=== PATIENT | male | born 1965 | race Caucasian/White ===

== ENCOUNTER 2020-06-13 13:27 | Emergency (ER) | payer OTHER, SELFPAY ==
[2020-06-13] VITALS (7 sets, daily range): BP systolic 109–167; BP diastolic 62–84; PULSE 64–88; RESP 18; TEMP 36.3–36.6; O2SAT 96–100; BMI 32.5
--- NOTE | 2020-06-13 13:43 | ECG_ITS ---
Test Reason : HEART PALP Blood Pressure : / mmHG Vent. Rate : 075 BPM Atrial Rate : 075 BPM P-R Int : 168 ms QRS Dur : 098 ms QT Int : 370 ms P-R-T Axes : 058 032 049 degrees QTc Int : 413 ms Sinus rhythm with Premature atrial complexes Otherwise normal ECG When compared with ECG of 17-OCT-2018 07:32, Premature atrial complexes are now Present Referred By: Oz Rivas Electronically Signed By:VIANCA CALDWELL MD
--- NOTE | 2020-06-13 13:48 | XR_ITS ---
EXAMINATION: XR CHEST CLINICAL INFORMATION: Palpitations COMPARISON: None TECHNIQUE: 2 views of the chest were obtained. FINDINGS: No significant abnormality is noted involving the heart, lungs, mediastinum, bony thorax or soft tissues. XR/XR chest 2V IMPRESSION: Unremarkable chest examination.
--- NOTE | 2020-06-13 14:05 | ED.ARRPALP ---
HPI - Arrhythmia/Palpitations General Chief Complaint: Arrhythmia/Palpitations Stated Complaint: Tachycardia Time Seen by Provider: 06/13/20 13:35 Source: patient Mode of arrival: ambulatory Limitations: no limitations History of Present Illness HPI narrative: patient presents to the ED for resolved palpitations. Patient states he had an episode of his heart beating fast for about 20 minutes that resolved. Patient states on his smart watch heart rate was 120. Patient denies ever having chest pain, shortness of breath, coughing up blood, fever, chills, night sweats, or swelling of lower extremities. Patient denies any calf pain. Patient states no recent travel or surgery. Patient denies any throat pain. MD complaint: rapid heart beat Related Data Allergies Allergy/AdvReac Type Severity Reaction Status Date / Time ciprofloxacin [CIPROFLOXACIN] Allergy Mild HIVES Unverified 05/01/20 14:45 cephalexin [From KEFLEX] AdvReac Intermediate CHEST PAIN Unverified 05/01/20 14:45 Sulfa (Sulfonamide AdvReac Intermediate STOMACH Unverified 05/01/20 14:45 Antibiotics) UPSET [SULFA (SULFONAMIDE ANTIBIOTICS)] Review of Systems Review of Systems: Yes all other systems are reviewed and are negative Constitutional: Constitutional: Reports as per HPI and Reports no additional constitutional complaints Eyes: Eyes: Reports as per HPI and Reports no additional eye complaints ENT: Reports system reviewed and no additional complaints, except as documented, Reports as per HPI, Denies dysphagia, Denies dry mouth, Denies ear discharge, Denies otalgia, Denies facial pain, Denies hoarseness, Denies mouth lesions, Denies mouth pain, Denies nasal congestion, Denies nasal discharge, Denies nasal obstruction and Denies neck pain Cardiovascular: Cardiovascular: Reports as per HPI, Reports no additional cardiovascular complaints, Denies Abdominal Cramping after Meds, Denies chest pain, Denies chest pain at rest, Denies chest pain with activity, Reports rapid heart rate ( Resolved), Denies pedal edema, Denies edema, Denies dyspnea, Denies dyspnea on exertion, Denies orthopnea and Denies paroxysmal nocturnal dyspnea Respiratory: Respiratory: Reports as per HPI, Reports no additional respiratory complaints, Denies no additional respiratory complaints, Denies change in phlegm color, Denies chest congestion, Denies cough, Denies hemoptysis, Denies excessive phlegm production, Denies pain on inspiration, Denies pain with cough, Denies dyspnea, Denies dyspnea on exertion, Denies stridor and Denies wheezing Gastrointestinal: Gastrointestinal: Reports as per HPI, Reports no additional gastrointestinal complaints, Denies abdominal pain, Denies belching, Denies melena, Denies bloating, Denies hematochezia, Denies change in bowel habits, Denies tenesmus, Denies change in stool character, Denies coffee ground emesis, Denies constipation, Denies GI cramping, Denies dysphagia, Denies excessive flatus, Denies early satiety, Denies dyspepsia, Denies heartburn, Denies fecal incontinence, Denies diarrhea, Denies loose stools and Denies nausea Genitourinary: Genitourinary: Denies no additional male genitourinary complaints, Denies as per HPI, Denies hematospermia, Denies change in libido, Denies hematuria, Denies oliguria, Denies painful ejaculations, Denies penile discharge, Denies scrotal swelling, Denies testicular mass and Denies testicular pain Musculoskeletal: Musculoskeletal: Reports no additional musculoskeletal complaints, Reports as per HPI, Denies abnormal gait, Denies back pain, Denies myalgias, Denies atrophy, Denies limited range of motion, Denies loss of height, Denies muscle cramps, Denies muscle weakness and Denies neck pain Neurologic: Reports system reviewed and no additional complaints, except as documented, Reports as per HPI and Denies abnormal gait Psychiatric: Psychiatric: Reports no additional psychiatric complaints, Reports as per HPI and Denies change in libido Endocrine: Endocrine: Denies change in libido Allergic/Immunologic: Allergic/Immunologic: Denies wheezing [facility] Past Medical History Medical History (Updated 06/13/20 @ 17:56 by FELICITY James) High cholesterol HTN (hypertension) Hypothyroid Rheumatoid arthritis Surgical History (Updated 06/13/20 @ 13:45 by Cata Maki) History of ankle surgery History of appendectomy S/P hernia surgery Social History Social History Alcohol intake: current Alcohol intake frequency: a few times a week Smoked in Last 30 Days: No Use of substances other than those prescribed or required for medical reasons: No Advance Directives: No Advance Directives Information Provided: No Physical Exam Vital Signs: Vital Signs: Vital Signs Temp Pulse Resp BP Pulse Ox 06/13/20 15:57 97.4 F 66 18 110/72 99 06/13/20 15:55 79 109/71 06/13/20 15:54 66 110/72 06/13/20 15:52 64 111/62 06/13/20 14:29 83 18 115/66 97 06/13/20 13:35 97.5 F 88 18 167/84 H 100 Body Mass Index 32.5 Const: General: cooperative, healthy appearing, comfortable, no acute distress, well developed, alert, awake and Physically active HENMT: Head: Yes normal to inspection and No No palpable skull fracture present General nose exam: Normal external nose present and Normal nares present Face and sinus: Yes normal facial exam Mouth: Normal oral and palatal mucosa present Eyes: General: appearance normal, both eyes and all related structures Neck: Neck: Yes normal visual inspection, Yes full ROM, Yes no lymphadenopathy and Yes no meningeal signs Chest: Chest palpation & inspection: normal inspection of the chest, normal palpation of entire chest wall and no localized rib tenderness Resp: Effort & Inspection: normal respiratory effort, able to speak in complete sentences, normal respiratory pattern, no audible wheezes, no grunting, not labored, no nasal flaring, no paradoxical thoraco-abdom movements, no pursed lip breathing, no segmental paradox chest wall movement, no tracheal deviation and no tripod positioning Auscultation: clear to auscultation bilaterally Percussion: percussion normal Cardio: Jugular venous distension: no JVD Rhythm: regular rhythm Heart sounds: S1 normal heart sound present and S2 normal heart sound present GI: Inspection: Yes normal to inspection and No abdominal wall ecchymosis Palpation (GI): Soft to palpation, not firm, nontender, no guarding and not rigid : General: No CVA tenderness and Yes no CVA tenderness Back/Spine/Pelvis: Back: no CVA tenderness, No CVA tenderness and No back tenderness Skin: General skin exam: no rashes or lesions noted Neuro: General: no meningeal signs Course Course Course Narrative: patient heart rate on the monitor is Between 80s to 90s. Patient presently does not have any chest pain or palpitations. Due to age patient will have a cardiac workup including troponin, EKG, and D-dimer. Patient also had chest x-ray. Patient does states history of hypothyroidism is on Synthroid. TSH level will be sent.. Reevaluation(s) Reevaluation #1: Patient troponin and D-dimer were negative. Wells score 0. EKG is normal. Chest x-ray is negative. Patient presently is asymptomatic. Negative for any neuro deficit. negative for pronator drift, facial droop, slurred speech, or paralysis of extremities. Motor/neuro /vascular exam of all extremities are intact. orthostatic blood pressure ordered Time: 16:22 Reevaluation #2: Patient's orthostatics negative. Patient's head CT is negative. Negative for any focal neuro deficit. Physical exam is negative for pronator drift, facial droop, or weakness in extremities. Patient has normal speech. patient's motor, neural, and vascular exam of all extremities are intact. Strength are equal. Cranial nerves intact. Finger to nose and rapid hand movement intact. Negative romberg test Time: 17:51 Reevaluation #3: Case signed out to PROBATE JUDGE Dandre to follow up second troponin. Time: 17:55 MDM - Arrhythmia/Palpitations MDM Narrative Medical decision making narrative: palpitation Lab Data Result diagrams: 06/13/20 14:24 06/13/20 14:24 Labs: Lab Results 06/13/20 06/13/20 06/13/20 Range/Units 14:24 14:24 14:24 WBC 11.3 H (4.8-10.8) X10*3/uL RBC 4.80 (4.60-5.80) X10*6/uL Hgb 15.2 (14.0-18.0) g/dl Hct 43.6 (42-52) % MCV 90.8 (80-98) fL MCH 31.7 (27.0-33.0) pg MCHC 34.9 (31.0-36.0) g/dl RDW 12.2 (11.0-16.0) % Plt Count 247 (160-400) X10*3/uL MPV 9.6 (9.4-12.4) fL Immature Gran % (Auto) 0.5 H (0.0-0.4) % Neut % (Auto) 63.4 (45-73) % Lymph % (Auto) 22.2 (20-40) % Robeson % (Auto) 10.1 (2-11) % Eos % (Auto) 3.3 (0-4) % Baso % (Auto) 0.5 (0-2) % Lymph # (Auto) 2.5 (1.2-4.9) X10*3/uL Robeson # (Auto) 1.1 (0.1-1.2) X10*3/uL Eos # (Auto) 0.4 (0.0-0.4) X10*3/uL Baso # (Auto) 0.1 (0.0-0.2) X10*3/uL Abs Immat Gran (auto) 0.06 H (0.00-0.03) X10*3/uL Absolute Neuts (auto) 7.2 (2.0-8.3) X10*3/uL Absolute Nucleated RBC 0.000 (0.0-0.012) X10*3/uL Nucleated RBC % (auto) 0.0 (0.0-0.2) /100WBC PT 12.0 (10.8-13.0) SEC INR 1.0 (0.9-1.1) APTT 31.8 (24.1-38.0) SEC D-Dimer NG/ML Sodium 137 (135-145) mmol/L Potassium 4.6 (3.3-5.1) mmol/l Chloride 101 (96-108) mmol/L Carbon Dioxide 28 (22-29) mmol/L Anion Gap 13 (12-20) BUN 13 (9-16) mg/dL Creatinine 1.09 (0.5-1.4) mg/dL Estim Creat Clear Calc 93.1 Estimated GFR > 60 Random Glucose 101 (60-115) mg/dL Calcium 8.6 (8.4-10.2) mg/dL Total Bilirubin 1.6 H (0.0-1.0) mg/dL AST 28 (5-37) U/L ALT 31 (0-40) U/L Alkaline Phosphatase 85 (39-117) U/L Troponin I High Sens (<3.5-35.0) ng/L Total Protein 7.0 (6.5-8.0) g/dL Albumin 4.4 (3.5-5.0) g/dL TSH 1.06 (0.32-4.0) mIU/mL Urine Color Urine Appearance Urine pH (5.0-8.0) Ur Specific [place] (1.005-1.025) Urine Protein (NEG-TRACE) MG/DL Urine Glucose (UA) (NEG) MG/DL Urine Ketones (NEG) MG/DL Urine Blood (NEG) Urine Nitrite (NEG) Ur Leukocyte Esterase (NEG) 06/13/20 06/13/20 06/13/20 Range/Units 14:24 14:24 14:25 WBC (4.8-10.8) X10*3/uL RBC (4.60-5.80) X10*6/uL Hgb (14.0-18.0) g/dl Hct (42-52) % MCV (80-98) fL MCH (27.0-33.0) pg MCHC (31.0-36.0) g/dl RDW (11.0-16.0) % Plt Count (160-400) X10*3/uL MPV (9.4-12.4) fL Immature Gran % (Auto) (0.0-0.4) % Neut % (Auto) (45-73) % Lymph % (Auto) (20-40) % Robeson % (Auto) (2-11) % Eos % (Auto) (0-4) % Baso % (Auto) (0-2) % Lymph # (Auto) (1.2-4.9) X10*3/uL [place] # (Auto) (0.1-1.2) X10*3/uL Eos # (Auto) (0.0-0.4) X10*3/uL Baso # (Auto) (0.0-0.2) X10*3/uL Abs Immat Gran (auto) (0.00-0.03) X10*3/uL Absolute Neuts (auto) (2.0-8.3) X10*3/uL Absolute Nucleated RBC (0.0-0.012) X10*3/uL Nucleated RBC % (auto) (0.0-0.2) /100WBC PT (10.8-13.0) SEC INR (0.9-1.1) APTT (24.1-38.0) SEC D-Dimer < 200 NG/ML Sodium (135-145) mmol/L Potassium (3.3-5.1) mmol/l Chloride (96-108) mmol/L Carbon Dioxide (22-29) mmol/L Anion Gap (12-20) BUN (9-16) mg/dL Creatinine (0.5-1.4) mg/dL Estim Creat Clear Calc Estimated GFR Random Glucose (60-115) mg/dL Calcium (8.4-10.2) mg/dL Total Bilirubin (0.0-1.0) mg/dL AST (5-37) U/L ALT (0-40) U/L Alkaline Phosphatase (39-117) U/L Troponin I High Sens < 3.5 (<3.5-35.0) ng/L Total Protein (6.5-8.0) g/dL Albumin (3.5-5.0) g/dL TSH 0.98 (0.32-4.0) mIU/mL Urine Color Urine Appearance Urine pH (5.0-8.0) Ur Specific [place] (1.005-1.025) Urine Protein (NEG-TRACE) MG/DL Urine Glucose (UA) (NEG) MG/DL Urine Ketones (NEG) MG/DL Urine Blood (NEG) Urine Nitrite (NEG) Ur Leukocyte Esterase (NEG) 06/13/20 Range/Units 15:28 WBC (4.8-10.8) X10*3/uL RBC (4.60-5.80) X10*6/uL Hgb (14.0-18.0) g/dl Hct (42-52) % MCV (80-98) fL MCH (27.0-33.0) pg MCHC (31.0-36.0) g/dl RDW (11.0-16.0) % Plt Count (160-400) X10*3/uL MPV (9.4-12.4) fL Immature Gran % (Auto) (0.0-0.4) % Neut % (Auto) (45-73) % Lymph % (Auto) (20-40) % Robeson % (Auto) (2-11) % Eos % (Auto) (0-4) % Baso % (Auto) (0-2) % Lymph # (Auto) (1.2-4.9) X10*3/uL [place] # (Auto) (0.1-1.2) X10*3/uL Eos # (Auto) (0.0-0.4) X10*3/uL Baso # (Auto) (0.0-0.2) X10*3/uL Abs Immat Gran (auto) (0.00-0.03) X10*3/uL Absolute Neuts (auto) (2.0-8.3) X10*3/uL Absolute Nucleated RBC (0.0-0.012) X10*3/uL Nucleated RBC % (auto) (0.0-0.2) /100WBC PT (10.8-13.0) SEC INR (0.9-1.1) APTT (24.1-38.0) SEC D-Dimer NG/ML Sodium (135-145) mmol/L Potassium (3.3-5.1) mmol/l Chloride (96-108) mmol/L Carbon Dioxide (22-29) mmol/L Anion Gap (12-20) BUN (9-16) mg/dL Creatinine (0.5-1.4) mg/dL Estim Creat Clear Calc Estimated GFR Random Glucose (60-115) mg/dL Calcium (8.4-10.2) mg/dL Total Bilirubin (0.0-1.0) mg/dL AST (5-37) U/L ALT (0-40) U/L Alkaline Phosphatase (39-117) U/L Troponin I High Sens (<3.5-35.0) ng/L Total Protein (6.5-8.0) g/dL Albumin (3.5-5.0) g/dL TSH (0.32-4.0) mIU/mL Urine Color YELLOW Urine Appearance CLEAR Urine pH 5.5 (5.0-8.0) Ur Specific [place] 1.015 (1.005-1.025) Urine Protein NEG (NEG-TRACE) MG/DL Urine Glucose (UA) NEG (NEG) MG/DL Urine Ketones NEG (NEG) MG/DL Urine Blood NEG (NEG) Urine Nitrite NEG (NEG) Ur Leukocyte Esterase NEG (NEG) ECG Data Interpretation: sinus rhythm with premature atrial complexes. Ventricular rate 75. NV interval 168. normal EKG. Negative STEMI Discharge Plan Discharge Clinical Impression: Palpitations
--- NOTE | 2020-06-13 14:30 | PC.NURSE ---
patient a&ox3, iv inserted, labs drawn, ekg performed, patient nsr on library monitor 60s-80s, patient denies any pain/discomfort, will continue to monitor.
--- NOTE | 2020-06-13 14:40 | PC.NURSE ---
patient a&ox3, iv inserted, labs drawn, ekg performed, pt nsr on laboratory monitor, cxr performed, patient awaiting results, vss, will continue to monitor.
[2020-06-13 14:41] LABS: MANUAL DIFF FLAG NO
[2020-06-13 14:42] LABS: Basophils Absolute Auto 0.1 X10*3/uL (0.0-0.2); Basophils Percent Auto 0.5 % (0-2); Eosinophils Absolute Auto 0.4 X10*3/uL (0.0-0.4); Eosinophils Percent Auto 3.3 % (0-4); Hematocrit 43.6 % (42-52); Hemoglobin 15.2 g/dl (14.0-18.0); Imm Gran Abs Auto 0.06 X10*3/uL (0.00-0.03); Imm Gran Pct Auto 0.5 % (0.0-0.4); Lymphocytes Absolute Auto 2.5 X10*3/uL (1.2-4.9); Lymphocytes Percent Auto 22.2 % (20-40); Mean Corpuscular HGB Conc 34.9 g/dl (31.0-36.0); Mean Corpuscular Hemoglobin 31.7 pg (27.0-33.0); Mean Corpuscular Volume 90.8 fL (80-98); Mean Platelet Volume 9.6 fL (9.4-12.4); Monocytes Absolute Auto 1.1 X10*3/uL (0.1-1.2); Monocytes Percent Auto 10.1 % (2-11); Neutrophils Absolute Auto 7.2 X10*3/uL (2.0-8.3); Neutrophils Percent Auto 63.4 % (45-73); Platelet Count 247 X10*3/uL (160-400); Red Cell Distribution Width 12.2 % (11.0-16.0); White Blood Count 11.3 X10*3/uL (4.8-10.8)
[2020-06-13 14:55] LABS: Partial Thromboplastin Time 31.8 SEC (24.1-38.0)
[2020-06-13 14:57] LABS: D Dimer < 200 NG/ML
[2020-06-13 15:04] LABS: Alanine Aminotransferase 31 U/L (0-40); Albumin Level 4.4 g/dL (3.5-5.0); Alkaline Phosphatase 85 U/L (39-117); Anion Gap 13 (12-20); Aspartate Amino Transferase 28 U/L (5-37); Bilirubin Total 1.6 mg/dL (0.0-1.0); Blood Urea Nitrogen 13 mg/dL (9-16); Calcium 8.6 mg/dL (8.4-10.2); Carbon Dioxide 28 mmol/L (22-29); Chloride 101 mmol/L (96-108); Creatinine Clr Calc Pharmacy 93.1; Estimated Glomerular Filt Rate > 60; Glucose Random 101 mg/dL (60-115); Potassium 4.6 mmol/l (3.3-5.1); Sodium 137 mmol/L (135-145)
[2020-06-13 15:10] LABS: Troponin-I High Sensitivity < 3.5 ng/L (<3.5-35.0)
[2020-06-13 15:25] LABS: TSH reflex Free T4 0.98 mIU/mL (0.32-4.0); Thyroid Stimulating Hormone 1.06 mIU/mL (0.32-4.0)
[2020-06-13 15:38] LABS: Glucose Urine UA NEG (NEG); Leukocyte Esterase Urine NEG (NEG); Nitrite Urine NEG (NEG); PH 5.5 (5.0-8.0); Specific Gravity - Urine 1.015 (1.005-1.025); Urine Blood NEG (NEG); Urine Ketones NEG (NEG); Urine Protein NEG (NEG-TRACE)
[2020-06-13 15:39] LABS: Appearance Urine CLEAR; Color Urine YELLOW
--- NOTE | 2020-06-13 15:53 | CT_ITS ---
EXAMINATION: CT HEAD WITHOUT CONTRAST CLINICAL INFORMATION: Dizziness. COMPARISON: None available. TECHNIQUE: Contiguous axial imaging was performed from the skull base to vertex without intravenous administration of contrast. This CT examination was performed using dose optimization techniques as appropriate, variously including the following: *Automated exposure control. *Adjustment of mA and/or kV according to patient size (this includes techniques or standardized protocols for targeted exams where dose is matched to indication/reason for exam; i.e. extremities or head). *Use of iterative reconstruction technique. DLP: 735 mGy-cm FINDINGS: There is no evidence of acute intracranial hemorrhage or edematous territorial infarction. There is no abnormal attenuation within the brain parenchyma. Alarcon-white matter differentiation is preserved. The ventricles are normal in size and configuration. No evidence for obstructive hydrocephalus. No abnormal mass effect or midline shift. The cerebellar tonsils are normally positioned. No extra-axial fluid collections. Calcific atherosclerotic disease of the intracranial internal carotid arteries. No hyperdense vessel sign. No acute soft tissue or osseous abnormalities. Moderate mucosal thickening of the paranasal sinuses. The mastoid air cells and middle ear cavities remain well aerated. CT/CT head/brain wo con IMPRESSION: 1. No evidence of acute intracranial hemorrhage or edematous territorial infarction. 2. Moderate sinonasal mucosal disease.
--- NOTE | 2020-06-13 16:04 | PC.NURSE ---
patient a&ox3, nsr on senior data analyst, orthostats performed and are negative, patient denies any pain or discomfort at this time, patient will have additional cardiac enzyme drawn per provider around 1730, will continue to monitor.
--- NOTE | 2020-06-13 18:45 | PC.NURSE ---
patient agitated and wanting to leave- pt took off his enrobing machine feeder and stated I need to get out of here because I need to go home and take my blood pressure medication , provider was notified, pt was told we are awaiting his second troponin to come back, provider to go speak with the patient. pt requested to remove iv, iv removed per patient request. pt encouraged to wait for provider.
[2020-06-13 18:48] LABS: Troponin-I High Sensitivity < 3.5 ng/L (<3.5-35.0)
== END 2020-06-13 19:04 | disposition home or self-care (01) ==
PROVIDERS: Physician Assistant; Emergency Provider Internal Medicine; PCP Physician Assistant Medical
DX: R00.2 Palpitations (principal); Z79.899 Other long term (current) drug therapy; Z20.828 Contact with and (suspected) exposure to other viral communicable diseases
CPT/HCPCS: 36415; 70450; 71046; 80053; 81003; 84443; 84484; 85025; 85379; 85610; 85730; 93005; 99284; 99285

== ENCOUNTER 2024-09-02 13:26 | Emergency (ER) | payer BC, SELFPAY ==
[2024-09-02 13:43] VITALS: BP 121/79; PULSE 84; RESP 18; TEMP 36.7; O2SAT 97; BMI 27.3
[2024-09-02 13:58] LABS: Appearance Urine Clear; Color Urine Yellow; Glucose Urine UA Negative (Negative); Leukocyte Esterase Urine Negative (Negative); Nitrite Urine Negative (Negative); Urine Blood Negative (Negative); Urine Ketones Negative (Negative); Urine Protein Negative (Neg-Trace)
[2024-09-02 14:11] LABS: Amphetamine Screen Urine Not Detected (Not Detect); Barbiturates, Urine Not Detected (Not Detect); Benzodiazepines Screen Urine Not Detected (Not Detect); Buprenorphine Scr Not Detected (Not Detect); Cannabinoid Screen Urine Not Detected (Not Detect); Cocaine Screen Urine Not Detected (Not Detect); Fentanyl, urine Not Detected (Not Detect); Methadone Screen, Urine Not Detected (Not Detect); Opiate Screen Urine Not Detected (Not Detect); Oxycodone Screen Urine Not Detected (Not Detect); Phencyclidine Screen Urine Not Detected (Not Detect)
--- NOTE | 2024-09-02 14:44 | ED_ITS ---
HPI - Psych General Chief Complaint: Psychiatric Symptoms Stated Complaint: SI Time Seen by Provider: 09/02/24 13:43 Source: patient and EMS Mode of arrival: EMS Limitations: no limitations History of Present Illness ED Provider: Marilou Ferguson APRN HPI Narrative: this is a 59-year-old male who has a history of hypertension, hyperlipidemia, hypothyroidism, rheumatoid arthritis who presents to the ER with complaints of suicidal thoughts with no plan. Per EMS patient is currently in inpatient bed search. He denies HI, hallucinations. Does occasionally drink alcohol. Denies any substance use. He does vape. he does currently have cough and congestion. He reports he went to urgent care and was negative for COVID. He denies any shortness of breath, fevers, chills, chest pain. Related Data Home Medications ?Medication ?Instructions ?Recorded ?Confirmed aspirin 81 mg capsule 81 mg PO QPM 09/02/24 09/02/24 atorvastatin 20 mg tablet 20 mg PO QPM 09/02/24 09/02/24 diltiazem HCl 180 mg capsule,24 180 mg PO QAM 09/02/24 09/02/24 hr,extended release (Tiadylt ER) folic acid 1 mg tablet 1 mg PO QPM 09/02/24 09/02/24 furosemide 20 mg tablet 20 mg PO QAM 09/02/24 09/02/24 levothyroxine 75 mcg tablet 75 mcg PO QAM 09/02/24 09/02/24 (Synthroid) olmesartan 20 mg tablet 20 mg PO QAM 09/02/24 09/02/24 Allergies Allergy/AdvReac Type Severity Reaction Status Date / Time ciprofloxacin [CIPROFLOXACIN] Allergy Mild HIVES Verified 09/02/24 13:52 cephalexin [From KEFLEX] AdvReac Intermediate CHEST PAIN Verified 09/02/24 13:52 Sulfa (Sulfonamide AdvReac Intermediate STOMACH Verified 09/02/24 13:52 Antibiotics) UPSET [SULFA (SULFONAMIDE ANTIBIOTICS)] Review of Systems 2 Review of Systems: Yes all other systems are reviewed and are negative Constitutional: Constitutional: Reports no additional constitutional complaints, Denies body ache(s), Denies chills, Denies fever(s), Denies headache(s) and Denies weakness Eyes: Eyes: Reports no additional eye complaints and Denies change in vision ENT: Reports system reviewed and no additional complaints, except as documented, Denies dizziness, Denies headache(s), Denies nasal congestion, Denies nasal discharge and Denies neck pain Cardiovascular: Cardiovascular: Reports no additional cardiovascular complaints, Denies chest pain, Denies leg edema and Denies dyspnea Respiratory: Respiratory: Reports no additional respiratory complaints, Reports cough and Denies dyspnea Gastrointestinal: Gastrointestinal: Reports no additional gastrointestinal complaints, Denies abdominal pain, Denies diarrhea, Denies nausea and Denies vomiting Genitourinary: Genitourinary: Denies urinary incontinence Musculoskeletal: Musculoskeletal: Reports no additional musculoskeletal complaints, Denies back pain, Denies arthralgias, Denies joint swelling, Denies neck pain, Denies numbness and Denies tingling Integumentary/Breasts: Skin/Breast: Reports system reviewed and no additional complaints, except as docu and Denies rash Neurologic: Reports system reviewed and no additional complaints, except as documented, Denies Abnormal speech present, Denies dizziness, Denies headache(s), Denies numbness, Denies tingling and Denies weakness Psychiatric: Psychiatric: Denies anxiety, Denies depression, Denies homicidal ideation and Reports suicidal ideation [facility] Past Medical History Attestation statement: The following information was validated with the patient. Source: old records reviewed and nursing notes reviewed Medical History Rheumatoid arthritis High cholesterol Hypothyroid HTN (hypertension) Surgical History History of ankle surgery History of appendectomy S/P hernia surgery Social History Social History Alcohol intake: current Alcohol intake frequency: a few times a week Advance Directives: No Advance Directives Information Provided: No Physical Exam 2 Vital Signs: Vital Signs: Last Vital Signs Temp 98.1 F 09/02/24 13:43 Pulse 84 09/02/24 13:43 Resp 18 09/02/24 13:43 BP 121/79 09/02/24 13:43 Pulse Ox 97 09/02/24 13:43 O2 Del Method Room Air 09/02/24 13:43 BMI result Body Mass Index 27.3 Const: General: cooperative, healthy appearing, comfortable and no acute distress Orientation/consciousness: patient oriented x3 Limitations: no limitations HEENT: Head: Yes normal to inspection Ears: hearing grossly normal bilaterally General nose exam: Normal external nose present Face and sinus: Yes normal facial exam Mouth: Normal oral and palatal mucosa present Throat: Yes posterior oropharynx normal Eyes: General: appearance normal, both eyes and all related structures P upils: Equal, round and reactive pupils present Neck: Neck: Yes normal visual inspection Chest: Chest palpation & inspection: normal inspection of the chest Resp: Effort & Inspection: normal respiratory effort Auscultation: clear to auscultation bilaterally Cardio: Rate: regular rate Rhythm: regular rhythm Peripheral pulses: P eripheral pulses 2+ throughout GI: Inspection: Yes normal to inspection Palpation (GI): Soft to palpation and nontender Auscultation: normal bowel sounds Back/Spine/Pelvis: Thoracic/Lumbar Spine: thoracic and lumbar spine normal to inspection Skin: General skin exam: no rashes or lesions noted Neuro: General: patient oriented x3, no focal motor deficits and normal sensation to monofilament Cranial nerves: Yes CN's II-XII intact bilaterally, Yes Equal, round and reactive pupils present, Yes Bilaterally intact EOM present, Yes Nystagmus not present, Yes Normal facial strength present and Yes Midline tongue present Cognition (Neuro): normal cognition Speech: No Abnormal speech present Gait exam (Neuro): Normal gait present Motor exam (neuro): 5/5 motor strength present throughout Sensory Exam: Normal double simultaneous stimulation for sensation Extrem: General: Yes normal to inspection Course Course Course Narrative: viral testing is negative. Labs are at baseline. Patient placed in physician observation pending inpatient bed search. Medications Administered Generic Name Dose Route Start Last Admin Trade Name Freq PRN Reason Stop Dose Admin Levothyroxine Sodium 75 mcg 09/02/24 14:45 09/02/24 15:16 Levothyroxine Sodium 75 Mcg Tablet PO Not Given DAILY [facility] Medical Decision Making Medical Decision Making [facility] Narrative: this is a 59-year-old male who has a history of hypertension, hyperlipidemia, hypothyroidism, rheumatoid arthritis who presents to the ER with complaints of SI, currently BS. Has URI symptoms. No shortness of breath or chest pain. No concern for acute ingestion or trauma will obtain labs including [place], viral testing Differential Diagnosis Differential Diagnoses: The differential diagnosis associated with the presentation includes depression Admission/Observation Consideration of admission/observation: Escalation of care including admission/observation considered Patient with history of depression, now SI requiring inpatient BS Lab Data MDM Lab Attestation statement: I reviewed the patient's lab results. 09/02/24 15:32 09/02/24 15:32 Labs: Lab Results 09/02/24 09/02/24 Range/Units 13:49 15:32 WBC 9.9 (4.8-10.8) X10*3/uL RBC 4.71 (4.60-5.80) X10*6/uL Hgb 15.7 (14.0-18.0) g/dl Hct 42.5 (42.0-52.0) % MCV 90.2 (80.0-98.0) fL MCH 33.3 H (27.0-33.0) pg MCHC 36.9 H (31.0-36.0) g/dl RDW 12.7 (11.0-16.0) % Plt Count 232 (160-400) X10*3/uL MPV 8.9 L (9.4-12.4) fL Absolute Nucleated RBC 0.000 (0.0-0.012) X10*3/uL Nucleated RBC % (auto) 0.0 (0.0-0.2) /100WBC Sodium 136 (135-145) mmol/L Potassium 3.5 (3.3-5.1) mmol/L Chloride 102 (96-108) mmol/L Carbon Dioxide 23 (22-29) mmol/L Anion Gap 15 (12-20) BUN 6 L (9-16) mg/dL Creatinine 0.90 (0.5-1.4) mg/dL Estim Creat Clear Calc 91.2 Estimated GFR > 60 Random Glucose 128 H (60-115) mg/dL Calcium 9.6 D (8.4-10.2) mg/dL Total Bilirubin 1.3 H (0.0-1.0) mg/dL AST 60 H (5-37) U/L ALT 53 H (0-40) U/L Alkaline Phosphatase 107 (39-117) U/L Total Protein 7.6 (6.5-8.0) g/dL Albumin 4.1 (3.5-5.0) g/dL Urine Color Yellow Urine Appearance Clear Urine pH 7.0 (5.0-9.0) Ur Specific [place] 1.010 (1.005-1.025) Urine Protein Negative (Neg-Trace) mg/dL Urine Glucose (UA) Negative (Negative) mg/dL Urine Ketones Negative (Negative) mg/dL Urine Blood Negative (Negative) Urine Nitrite Negative (Negative) Ur Leukocyte Esterase Negative (Negative) Urine Opiates Screen Not Detected (Not Detect) Ur Buprenorphine Scrn Not Detected (Not Detect) ng/mL Ur Oxycodone Screen Not Detected (Not Detect) ng/mL Urine Methadone Screen Not Detected (Not Detect) ng/mL Urine Fentanyl Screen Not Detected (Not Detect) Ur Barbiturates Screen Not Detected (Not Detect) Ur Phencyclidine Scrn Not Detected (Not Detect) Ur Amphetamines Screen Not Detected (Not Detect) U Benzodiazepines Scrn Not Detected (Not Detect) Urine Cocaine Screen Not Detected (Not Detect) U Marijuana (THC) Screen Not Detected (Not Detect) Ethyl Alcohol < 10 mg/dL Influenza Type A (PCR) NEGATIVE (Negative) Influenza Type B (PCR) NEGATIVE (Negative) RSV RNA Qual (PCR) NEGATIVE (Negative) SARS-CoV-2 RNA (RT-PCR) NEGATIVE (Negative) Independent Historian Clinical information obtained from an independent historian. History obtained from or confirmed by: EMS Discharge Plan Discharge Clinical Impression: Depression Patient Disposition: Still a Patient Prescriptions: No Action atorvastatin 20 mg tablet 20 mg PO QPM diltiazem HCl [Tiadylt ER] 180 mg capsule,extended release 24 hr 180 mg PO QAM levothyroxine [Synthroid] 75 mcg tablet 75 mcg PO QAM folic acid 1 mg tablet 1 mg PO QPM furosemide 20 mg tablet 20 mg PO QAM olmesartan 20 mg tablet 20 mg PO QAM aspirin 81 mg Capsule 81 mg PO QPM Print Language: [place]
--- NOTE | 2024-09-02 15:04 | PHA.MEDREC ---
Pharmacy Consult ? Medication Reconciliation Pharmacy has REVIEWED the medication reconciliation COMPLETED by nursing.
--- NOTE | 2024-09-02 15:07 | MHC.CARE ---
[facility] called in expect on Billy Martinez (1965), he was assessed in community and will be IPLOC, voluntary SI with plan to overdose. [facility] to send assessment when completed.?
[2024-09-02 15:38] LABS: Hematocrit 42.5 % (42.0-52.0); Hemoglobin 15.7 g/dl (14.0-18.0); Mean Corpuscular HGB Conc 36.9 g/dl (31.0-36.0); Mean Corpuscular Hemoglobin 33.3 pg (27.0-33.0); Mean Corpuscular Volume 90.2 fL (80.0-98.0); Mean Platelet Volume 8.9 fL (9.4-12.4); Platelet Count 232 X10*3/uL (160-400); Red Blood Count 4.71 X10*6/uL (4.60-5.80); Red Cell Distribution Width 12.7 % (11.0-16.0); White Blood Count 9.9 X10*3/uL (4.8-10.8)
[2024-09-02 15:49] LABS: Ethanol < 10 mg/dL
[2024-09-02 15:58] LABS: Alanine Aminotransferase 53 U/L (0-40); Albumin Level 4.1 g/dL (3.5-5.0); Anion Gap 15 (12-20); Aspartate Amino Transferase 60 U/L (5-37); Bilirubin Total 1.3 mg/dL (0.0-1.0); Blood Urea Nitrogen 6 mg/dL (9-16); Calcium 9.6 mg/dL (8.4-10.2); Carbon Dioxide 23 mmol/L (22-29); Chloride 102 mmol/L (96-108); Creatinine Clr Calc Pharmacy 91.2; Estimated Glomerular Filt Rate > 60; Glucose Random 128 mg/dL (60-115); Potassium 3.5 mmol/L (3.3-5.1); Sodium 136 mmol/L (135-145); Total Protein 7.6 g/dL (6.5-8.0)
[2024-09-02 16:04] LABS: Alkaline Phosphatase 107 U/L (39-117)
[2024-09-02 16:14] LABS: Influenza A PCR NEGATIVE (Negative); Influenza B PCR NEGATIVE (Negative); Resp Syncy Virus RNA Qual PCR NEGATIVE (Negative); SARS COV2 PCR INHOUSE NEGATIVE (Negative)
--- NOTE | 2024-09-02 20:37 | PC.NURSE ---
patient appears to remain at rest presently respiraitons are even and unlabored patient appears in no distress.
[2024-09-02 21:33] VITALS: BP 102/56; PULSE 67; RESP 14; TEMP 37.2; O2SAT 97
[2024-09-02] MEDS: Atorvastatin Calcium 20 MG TABLET PO (21:59)
[2024-09-02] MEDS: Aspirin Enteric Coated 81 MG TABLET.DR PO (22:00)
[2024-09-02] MEDS: Folic Acid 1 MG TABLET PO (22:00)
[2024-09-02 22:04] VITALS: BP 102/56
--- NOTE | 2024-09-03 | ECG_ITS ---
Test Reason : PSYCH Blood Pressure : */* mmHG Vent. Rate : 68 BPM Atrial Rate : 68 BPM P-R Int : 158 ms QRS Dur : 98 ms QT Int : 370 ms P-R-T Axes : 58 66 56 degrees QTcB Int : 393 ms Normal sinus rhythm Normal ECG When compared with ECG of 13-Jun-2020 14:25, Premature atrial complexes are no longer Present Referred By: Moiz Cannon Electronically Signed By: KAYCEE DOYLE MD
[2024-09-03 04:03] VITALS: BP 108/59; PULSE 70; RESP 14; TEMP 36.7; O2SAT 96
[2024-09-03] MEDS: Levothyroxine Sodium 75 MCG TABLET PO (09:32)
[2024-09-03 09:34] VITALS: BP 97/56
--- NOTE | 2024-09-03 09:35 | PC.NURSE ---
Pt BP noted to be 97/56. Valsartan and lasix held d/t soft BP. MD gaspar
[2024-09-03 09:36] VITALS: BP 97/56
[2024-09-03] MEDS: Nicotine 21 MG PATCH.TD24 TRANSDERMA (13:11)
[2024-09-03 14:39] VITALS: BP 115/72; PULSE 68; RESP 14; TEMP 36.4; O2SAT 98
--- NOTE | 2024-09-03 15:22 | MHC.CARE ---
Patient originally sent to ED by [facility] yesterday for inpatient psychiatric admission, he was reassessed by the CARE Team today and will be discharged home with family. ED provider, Dr. Cannon updated and in agreement. See written evaluation for details.
[2024-09-03 15:49] VITALS: BP 121/73; PULSE 62; RESP 18; TEMP 36.6; O2SAT 97
[2024-09-03 16:27] VITALS: BP 121/73; PULSE 62; RESP 18; TEMP 36.6; O2SAT 97
== END 2024-09-03 16:40 | disposition home or self-care (01) ==
PROVIDERS: Nurse Practitioner Family; Emergency Provider Emergency Medicine; PCP Nurse Practitioner Family
DX: F33.1 Major depressive disorder, recurrent, moderate (principal); R45.851 Suicidal ideations; E78.5 Hyperlipidemia, unspecified; E03.9 Hypothyroidism, unspecified; I10 Essential (primary) hypertension; Z79.899 Other long term (current) drug therapy; Z51.81 Encounter for therapeutic drug level monitoring; Z03.818 Encounter for observation for suspected exposure to other biological agents ruled out
CPT/HCPCS: 0241U; 36415; 80053; 80307; 81003; 85027; 93005; 99285; S9485

== ENCOUNTER → 2024-09-03 08:48 | Outpatient (BNV) | payer BC, SELFPAY | PROVIDERS: Emergency Provider Emergency Medicine; PCP Nurse Practitioner Family; Visit Provider Internal Medicine Cardiovascular Disease | DX: R45.851 Suicidal ideations (principal) | CPT/HCPCS: 93010 ==